=== PATIENT | male | born 1955 ===

== ENCOUNTER 2017-02-26 21:59 | Emergency (ER) | payer OTHER ==
[2017-02-27] MEDS ORDERED: CEPHALEXIN 250 MG CAPSULE ONE (01:40)
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
== END 2017-02-27 01:51 | disposition home or self-care (01) ==
LOC: ED 21:59
DX: S02.2XXA Fracture of nasal bones, initial encounter for closed fracture (principal); S09.90XA Unspecified injury of head, initial encounter; M25.561 Pain in right knee; I10 Essential (primary) hypertension; V09.20XA Pedestrian injured in traffic accident involving unspecified motor vehicles, initial encounter; Y93.01 Activity, walking, marching and hiking; Y92.9 Unspecified place or not applicable